=== PATIENT | male | born 1950 | race Caucasian/White ===

== ENCOUNTER → 2016-04-23 | Outpatient (CLI) | payer OTHER ==
[~2016-04-23] MED LIST: IOPAMIDOL (ISOVUE-300) 100 ML BTL IV ONE
--- NOTE | 2016-04-23 17:23 | CT ---
CT Scan of the Chest (With Contrast) at 1539 hours Clinical Indications: J86.9, pyothorax without fistula, skiing accident with multiple left rib fractu res, collapsed lung and infection; follow up to healing. Comparison: None available, from [place]. Technique: During the uneventful intravenous machine power injection of 90 mL Isovue-300, multidetect or helical CT imaging was performed from the superior thoracic inlet to the diaphragm. The radiologis t manipulated images at the computer workstation. Dose reduction techniques were utilized. Findings: Multiple subacute displaced fractures of the left second through tenth ribs in the midaxill spencer line with partial healing, although fracture lines remain evident. No apical pneumothorax. Left anterior lateral upper lobe and lingula pleural parenchymal scarring with loculated cystic plunkett es in the lingula, image 130 of series 3, measuring 14 x 7 mm. Posterior basilar peripheral pleural t hickening and pleural parenchymal scarring with minimal left pleural effusion. Pleural parenchymal sc arring in the anterior segment of the left upper lobe is also noted. Right lung demonstrates no acute infiltrate. No aortic aneurysm or dissection. Heart is normal in size without pericardial effusion. No significan t mediastinal, hilar or axillary adenopathy. Right arm PICC line with the tip in the superior vena ca va. Upper abdomen demonstrates no splenic laceration or splenomegaly. Adrenals are not enlarged. No perip ancreatic fluid. Mild atherosclerotic calcification of the lower thoracic and upper abdominal aorta. No evidence of thoracic compression fractures. T12-L1 moderate degenerative disk disease and degenera tive retrolisthesis partially visualized. Impression: 1. Right arm PICC line in superior vena cava. 2. Pleural parenchymal scarring in the lingula and anterior segment of the left upper lobe with minim al loculated cystic change or air in the lingula. 3. Minimal left pleural effusion and left lower lobe posterior lateral basal segment pleural parenchy mal scarring. 4. Multiple subacute displaced left second through tenth rib fractures in the mid axillary line. 5. Recommend obtaining prior studies for comparison.
== END ==
LOC: CIMAGING 15:13
PROVIDERS: ATTEND Internal Medicine Infectious Disease
DX: J98.4 Other disorders of lung (principal); J90 Pleural effusion, not elsewhere classified; S22.42XD Multiple fractures of ribs, left side, subsequent encounter for fracture with routine healing; Z95.9 Presence of cardiac and vascular implant and graft, unspecified; Y93.23 Activity, snow (alpine) (downhill) skiing, snowboarding, sledding, tobogganing and snow tubing
CPT/HCPCS: 71260; Q9967

== ENCOUNTER → 2016-04-25 | Outpatient (CLI) | payer OTHER ==
--- NOTE | 2016-04-25 13:07 | DX ---
Left Clavicle, 2 views History: Follow-up left clavicle fracture posteriorly injury Comparison: None Findings: There is a superiorly angulated fracture coursing through the distal left clavicular head. No radiopaque callus or periosteal new bone is identified. The coracoclavicular distance is not widen ed. The AC joint is angled but normal in width. 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 There are displaced fractures of the lateral left third and fourth ribs. A right arm PICC line i s partially included on the exam. Impression: No evidence for callus formation or periosteal new bone associated with the mildly displa nurys distal left clavicle fracture.
== END ==
LOC: FIMAGING 12:41
PROVIDERS: ATTEND Internal Medicine Infectious Disease
DX: S42.002D Fracture of unspecified part of left clavicle, subsequent encounter for fracture with routine healing (principal)